=== PATIENT | female | born 1990 | race Caucasian/White ===

== ENCOUNTER 2021-10-01 05:25 | Inpatient (IN) | payer OTHER ==
[2021-10-01] MEDS ORDERED: hydrALAZINE 20 MG/ML VIAL SLOW IVP PRN ×2 (05:46→07:54)
[2021-10-01] MEDS ORDERED: ceFAZolin 2 GM/Dextrose 50 ML 2 GM in Premix Bag 1 BAG IVPB SCH (05:46)
[2021-10-01] MEDS ORDERED: Promethazine HCl 25 MG/ML VIAL IM PRN ×3 (05:46→09:01)
[2021-10-01] MEDS ORDERED: Bicitra 30 ML UDCUP PO PRN (05:46)
[2021-10-01] MEDS ORDERED: Famotidine/PF 20 mg/2ml Vial SLOW IVP PRN (05:46)
[2021-10-01] MEDS ORDERED: Ondansetron PF 4 MG/2 ML Vial IVP PRN ×3 (05:46→09:01)
[2021-10-01] MEDS: Lactated Ringer's 1,000 ML IV SCH ×3 (06:15→22:30)
[2021-10-01 06:49] VITALS: BMI 44.2
[2021-10-01] MEDS ORDERED: Phenylephrine 40 MG/NS 250 ML 250 ML ONE (07:01)
[2021-10-01] MEDS ORDERED: Methylergonovine 0.2 MG/ML VIAL ONE (07:05)
[2021-10-01] MEDS ORDERED: Carboprost 250 MCG/ML AMP ONE ×2 (07:05→10:18)
[2021-10-01] MEDS ORDERED: Misoprostol 200 MCG TAB ONE (07:06)
[2021-10-01] MEDS ORDERED: Morphine PF 10 MG/10 ML VIAL ONE (07:07)
[2021-10-01] MEDS ORDERED: HYDROcodone/Acetaminophen 5/325 mg Tablet PO PRN ×2 (07:54)
[2021-10-01] MEDS ORDERED: Boostrix 0.5 ML (Tdap) VIAL IM ONE (07:54)
[2021-10-01] MEDS ORDERED: Simethicone Chewable 80 MG TAB PO PRN (07:54)
[2021-10-01] MEDS ORDERED: Meperidine HCl/PF 25 MG/ML VIAL IM PRN (07:54)
[2021-10-01] MEDS ORDERED: Zolpidem Tartrate 5 MG TAB PO PRN (07:54)
[2021-10-01] MEDS ORDERED: Bisacodyl 10 MG SUPP PR PRN (07:54)
[2021-10-01] MEDS ORDERED: Acetaminophen 325 MG TAB PO PRN (07:54)
[2021-10-01] MEDS ORDERED: Lanolin Ointment 7 GM TUBE TOP PRN (07:54)
[2021-10-01] MEDS ORDERED: diphenhydrAMINE 25 MG CAP PO PRN (07:54)
[2021-10-01] MEDS ORDERED: Ketorolac Tromethamine 30 MG/ML VIAL ONE (08:52)
[2021-10-01] MEDS ORDERED: Ondansetron PF 4 MG/2 ML Vial ONE (08:52)
[2021-10-01] MEDS ORDERED: Promethazine HCl 25 MG SUPP PR PRN (09:01)
[2021-10-01] MEDS ORDERED: Naloxone HCl 0.4 mg/ml Vial IVP PRN ×2 (09:01)
[2021-10-01] MEDS ORDERED: Fentanyl 100 MCG/2 ML VIAL SLOW IVP PRN (09:01)
[2021-10-01] MEDS ORDERED: Hydrocerin (Eucerin) Cream 120 gm Jar TOP PRN (09:01)
[2021-10-01] MEDS ORDERED: Ondansetron HCl/PF 4 MG/2 ML Vial IVP PRN (09:01)
[2021-10-01] MEDS ORDERED: Naloxone HCl 0.4 mg/ml Vial IV PRN (09:01)
[2021-10-01] MEDS ORDERED: Meperidine HCl/PF 25 MG/ML VIAL SLOW IVP PRN (09:01)
[2021-10-01] MEDS ORDERED: HYDROmorphone 2 MG/ML VIAL SLOW IVP PRN (09:01)
[2021-10-01] MEDS ORDERED: diphenhydrAMINE 50 MG/ML VIAL IVP PRN (09:01)
[2021-10-01] MEDS ORDERED: Ketorolac Tromethamine 30 MG/ML VIAL IVP SCH (09:15)
[2021-10-01] MEDS ORDERED: Communication Order-Pharmacy FS SCH (09:15)
[2021-10-01] MEDS ORDERED: NS w/ Oxytocin 30 units 500 ML ONE (10:00)
[2021-10-01] MEDS ORDERED: Ibuprofen 800 MG TAB PO SCH (14:00)
[2021-10-01] MEDS ORDERED: Oxytocin 10 UNITS/ML VIAL ONE (15:29)
[2021-10-01] MEDS: Docusate 100 MG CAP PO SCH ×2 (16:04→22:29)
[2021-10-01] MEDS: Ferrous Sulfate 325 MG TAB PO SCH ×2 (16:04→22:29)
[2021-10-01] MEDS: Prenatal Vitamin 1 TAB PO SCH (16:04)
[2021-10-02] MEDS: Ketorolac Tromethamine 30 MG/ML VIAL IVP PRN ×2 (00:28→06:23)
[2021-10-02 04:41] LABS: Hemoglobin 9.3 g/dL (12.0-15.5); Mean Corpuscular Hemoglobin 27.1 pg (27.0-33.0); Mean Corpuscular Volume 84.8 fl (81.6-98.3); Mean Platelet Volume 10.4 fl (7.4-10.4); Platelet Count 227 10x3/uL (150-450); RBC Distribution Width 15.9 % (11.5-14.5); Red Blood Cell (RBC) Count 3.43 10x6/uL (3.90-5.03); White Blood Cell (WBC) Count 8.2 10x3/uL (3.5-10.5)
[2021-10-02] MEDS: Lactated Ringer's 1,000 ML IV SCH ×2 (06:23→14:07)
[2021-10-02] MEDS: Ferrous Sulfate 325 MG TAB PO SCH ×2 (10:38→23:03)
[2021-10-02] MEDS: Prenatal Vitamin 1 TAB PO SCH (10:38)
[2021-10-02] MEDS: Docusate 100 MG CAP PO SCH ×2 (10:39→23:03)
[2021-10-02] MEDS: Ibuprofen 800 MG TAB PO SCH ×2 (16:12→23:03)
[2021-10-02] MEDS ORDERED: HYDROcodone/Acetaminophen 5/325 mg Tablet PO PRN (19:42)
[2021-10-02] MEDS: HYDROcodone/Acetaminophen 5/325 mg Tablet PO PRN (20:33)
[2021-10-03] MEDS: Lactated Ringer's 1,000 ML IV SCH ×3 (02:15→07:29)
[2021-10-03] MEDS: Ibuprofen 800 MG TAB PO SCH (06:11)
[2021-10-03 07:36] VITALS: BP 143/72; TEMP 97.6
[2021-10-03] MEDS: Ferrous Sulfate 325 MG TAB PO SCH (08:25)
[2021-10-03] MEDS: Docusate 100 MG CAP PO SCH (08:25)
[2021-10-03] MEDS: HYDROcodone/Acetaminophen 5/325 mg Tablet PO PRN (08:25)
[2021-10-03] MEDS: Prenatal Vitamin 1 TAB PO SCH (08:25)
== END 2021-10-03 11:07 | disposition home or self-care (01) | DRG 788 ==
LOC: CSHLD 05:25 → CSHPP 11:45
PROVIDERS: ADMIT Obstetrics & Gynecology; ATTEND Obstetrics & Gynecology
PROC: 10D00Z1 Extraction of Products of Conception, Low, Open Approach (ICD-10-PCS; principal; 2021-10-01)
DX: O34.211 Maternal care for low transverse scar from previous cesarean delivery (principal); Z37.0 Single live birth; Z3A.39 39 weeks gestation of pregnancy; O34.03 Maternal care for unspecified congenital malformation of uterus, third trimester; Q51.3 Bicornate uterus; Q51.28 Other and unspecified doubling of uterus; O99.02 Anemia complicating childbirth; D64.9 Anemia, unspecified
CPT/HCPCS: 36415; 51702; 85027; 86850; 86900; 86901; J1200; J1885; J2274; J2405; J2590; J7120; S0028